=== PATIENT | male | born 1975 | race Caucasian/White ===

== ENCOUNTER 2023-10-26 15:30 | Outpatient (OUT) | payer BC, SELFPAY | END 2023-10-26 15:31 | disposition home or self-care (01) | LOC: SLEEP 15:31 | PROVIDERS: Family Provider Hospitalist; PCP Nurse Practitioner Family; Visit Provider Nurse Practitioner Family | DX: G47.10 Hypersomnia, unspecified (principal); R06.83 Snoring | CPT/HCPCS: 95806 ==